=== PATIENT | male | born 1995 | race African-American/Black ===

== ENCOUNTER 2024-02-16 21:01 | Emergency (ER) | payer OTHER ==
[2024-02-16] MEDS ORDERED: Bacitracin 1 PK ONE (23:21)
[2024-02-16] MEDS ORDERED: cloNIDine 0.1 MG TAB ONE (23:21)
[2024-02-16] MEDS ORDERED: Boostrix 0.5 ML (Tdap) VIAL (>/=7 yrs of age) ONE (23:21)
== END 2024-02-16 23:59 | disposition home or self-care (01) ==
LOC: CSHERS 21:01
DX: S81.812A Laceration without foreign body, left lower leg, initial encounter (principal); I10 Essential (primary) hypertension; Z55.0 Illiteracy and low-level literacy; Z23 Encounter for immunization; W20.8XXA Other cause of strike by thrown, projected or falling object, initial encounter
CPT/HCPCS: 90471; 90715

== ENCOUNTER 2024-11-14 19:30 | Emergency (ER) | payer OTHER | END 2024-11-14 21:20 | disposition home or self-care (01) | LOC: CSHERS 19:30 | DX: K46.9 Unspecified abdominal hernia without obstruction or gangrene (principal); I10 Essential (primary) hypertension; X50.0XXA Overexertion from strenuous movement or load, initial encounter | CPT/HCPCS: 99283 ==